=== PATIENT | female | born 1960 | race African-American/Black ===

== ENCOUNTER 2017-01-30 13:26 | Emergency (ER) | payer OTHER ==
[~2017-01-30] VITALS: Ht 157.5 cm; Wt 68.1 kg
[2017-01-30 13:55] LABS: POINT-OF-CARE METER ID UU13113778
[2017-01-30 14:23] LABS: MCH 31.1 PG (29.0-34.0); MCHC 33.2 G/DL (30.0-36.0); MCV 93.8 FL (83-99); MEAN PLAT.VOLUME 11.2 uM^3 (9.5-12.4); PLATELET COUNT 259 K/uL (156-360); RBC DIS.WIDTH-CV 11.5 % (11.8-14.6); RBC DIS.WIDTH-SD 39.2 % (39-53); RED BLOOD COUNT 4.05 M/uL (3.80-5.20); WHITE BLOOD COUNT 5.4 K/uL (4.1-10.2)
[2017-01-30 14:31] LABS: CHLORIDE 105 mEq/L (99-109); POTASSIUM 4.1 mEq/L (3.7-5.4); SODIUM 138 mEq/L (136-147)
[2017-01-30 14:34] LABS: ANION GAP 10 MEQ/L (2-14); GLUCOSE 154 mg/dL (70-99)
[2017-01-30 14:37] LABS: GFR ESTIMATE (CALCULATED) > 59 mL/min/
[2017-01-30 14:38] LABS: UREA NITROGEN (BUN) 10 mg/dL (9-23)
[2017-01-30] MEDS ORDERED: METFORMIN HCL500 MG PO (14:54)
[2017-01-30] MEDS ORDERED: LISINOPRIL10 MG PO (15:09)
[2017-01-30 15:24] VITALS: BP 156/62
== END 2017-01-30 15:27 | disposition home or self-care (01) ==
LOC: EME 13:26
PROVIDERS: Emergency Medicine
DX: E86.0 Dehydration (principal); E11.9 Type 2 diabetes mellitus without complications; I10 Essential (primary) hypertension; T38.3X6A Underdosing of insulin and oral hypoglycemic [antidiabetic] drugs, initial encounter; T46.5X6A Underdosing of other antihypertensive drugs, initial encounter; Z91.14 Patient's other noncompliance with medication regimen; E78.5 Hyperlipidemia, unspecified
CPT/HCPCS: 80048; 81003; 82948; 85027; 99281; 99284; J7030